=== PATIENT | male | born 1985 | race Caucasian/White ===

== ENCOUNTER 2023-04-15 18:23 | Emergency (ER) | payer SELFPAY ==
[2023-04-15 18:29] VITALS: BP 131/85; PULSE 107; RESP 18; TEMP 36.6; O2SAT 97
--- NOTE | 2023-04-15 20:58 | ED.URI ---
HPI - URI/Sore Throat General Chief Complaint: Upper Respiratory Infection Stated Complaint: Sore Throat/Cough/Shortness of Breath Source: patient, RN notes reviewed and old records reviewed Mode of arrival: ambulatory Limitations: no limitations History of Present Illness HPI Narrative: 38 year old male presents to [facility] care with complaints of sinus pressure, ear and teeth pain for one week duration. Patient reports that he developed headache, fever,cough with congestion some sore throat, and feeling flushed with body aches starting last night. Patient also reports that pain to his right ear has increased and he is unsure how high his temperature has been He reports that he has been taking Ibuprofen. MD elicited complaint: fever, sore throat, rhinorrhea, nasal congestion and other (ear pain) Onset (ago): week(s) (initial symptoms of sinus with ear pain 1 week other symptoms since last night) Pain scale (0-10): 6 Able to tolerate fluids by mouth: Yes Treatments prior to arrival: ibuprofen Related Data Allergies Allergy/AdvReac Type Severity Reaction Status Date / Time azithromycin Allergy Intermediate Rash Verified 04/15/23 19:44 Review of Systems Review of Systems: CONSTITUTIONAL: Reports malaise, chills, sweats, or fever. EYES: Denies visual changes, redness, or discharge. ENT: Reports rhinorrhea, congestion, sinus pain, otalgia and sore throat. CARDIOVASCULAR: Denies chest pain, palpitations, or edema. RESPIRATORY: Reports cough.? Denies dyspnea. GASTROINTESTINAL: Denies abdominal pain, nausea, vomiting, diarrhea SKIN: Denies rash or itching. MUSCULOSKELETAL:Reports myalgia. NEUROLOGIC: Reports headache. All systems reviewed & are unremarkable except as noted in HPI and below PMFSH Past Medical History Medical History (Updated 04/18/23 @ 17:01 by Tamiko Ramírez NP) Fracture of left leg Fracture of right foot surgical repair Surgical History Surgical History (Updated 04/18/23 @ 16:56 by Tamiko Ramírez NP) History of surgical removal of testicle left History of tonsillectomy Social History Social History (Updated 04/18/23 @ 16:58 by Tamiko Ramírez NP) Smoking status: Never smoker Alcohol intake: current Alcohol use details: social Substance use type: does not use Living arrangements: with family Gender identity (if verbalized by the patient): Male Comments At time of signature, agree with nursing past medical, surgical, social and family history. There is no relevant family history pertinent to the presenting complaint Exam Narrative: GENERAL: Well-appearing, well-nourished, and in no acute distress. HEAD: Normocephalic EYES: PERRLA, conjunctivae clear ENT: Nares clear, turbinates edematous and erythematous, clear discharge. Mucous membranes moist.Right TM red and bulging Left TM pearly albright with dull light reflex; no tragal tenderness. Oropharynx erythematous without lesions. Tonsils not present and throat without exudate, no drooling, no hoarseness, no trismus, uvula midline.post nasal drainage. NECK: Supple. No lymphadenopathy CHEST: Clear to auscultation, breath sounds equal. No wheezing, rhonchi, rales, or stridor. No respiratory distress, speaks in full sentences.cough productive SAO2 97% on room air HEART: Regular rate and rhythm. No murmur heard. SKIN: Warm, dry, no rash. NEURO: Alert and oriented x3. PSYCH: Normal mood and affect Course Course Emergency Course: Patient is aware of diagnosis, understands and agrees to treatment plan.? Anticipatory guidance given.? Patient agrees to follow-up as directed and is aware of reasons to seek care at the emergency department. Portions of this record may have been created with voice recognition software Level of Care: Express Care Visit Vital Signs Vital signs: Vital Signs Temperature 36.6 C 04/15/23 18:29 Pulse Rate 107 H 04/15/23 18:29 Respiratory Rate 18 04/15/23 18:2
== END 2023-04-15 21:07 | disposition home or self-care (01) ==
PROVIDERS: Emergency Provider Registered Nurse
DX: J10.1 Influenza due to other identified influenza virus with other respiratory manifestations (principal); H66.91 Otitis media, unspecified, right ear
CPT/HCPCS: 87804; 99203; G0463

== ENCOUNTER 2025-04-15 11:07 | Emergency (ER) | payer OTHER, SELFPAY ==
--- OUTSIDE RECORDS SUMMARY | 2025-04-15 11:14 | XMS_ITS | Clinical Summary ---
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 Name Role Phone Moose Gibbons MD Unavailable [phone] No, Physician Primary Care Provider [phone] Allergies Active Allergy Reactions Criticality Noted Date Comments Azithromycin Medications aspirin 81 mg enteric coated tabletIndicatio ns:myocardial infarction prevention Take 1 tablet (81 mg total) by mouth daily 30 tablet 1 Active metoprolol tartrate (LOPRESSOR) 25 mg immediate release tabletIndicatio ns:Cardiovasula r Disease Take 1 tablet (25 mg total) by mouth 2 (two) times a day 60 tablet 1 Active Additional Information Patient not taking.Reported on 12/25/2021 nitroglycerin (NITROSTAT) 0.4 mg SL tabletIndicatio ns:Angina Place 1 tablet (0.4 mg total) under the tongue every 5 (five) minutes as needed for chest pain for up to 3 doses 30 tablet 1 Active Additional Information Patient not taking.Reported on 12/25/2021 dicyclomine (BENTYL) 20 mg tablet Take 1 tablet (20 mg total) by mouth every 8 (eight) hours as needed (Crampy abdominal pain) 20 tablet 1 Active Additional Information Patient not taking.Reported on 12/25/2021 amoxicillin-cla vulanate (AUGMENTIN) 875-125 mg per tablet Take 1 tablet by mouth every 12 (twelve) hours 14 tablet 1 Active Additional Information Patient not taking.Reported on 12/25/2021 albuterol HFA (PROVENTIL HFA,VENTOLIN HFA,PROAIR HFA) 90 mcg/actuation inhaler Inhale 2 puffs every 4 (four) hours as needed for wheezing 1 each 1 Active Additional Information Patient not taking.Reported on 12/25/2021 ibuprofen (ADVIL,MOTRIN) 800 mg tablet Take 1 tablet (800 mg total) by mouth every 8 (eight) hours as needed for pain or fever 20 tablet 3 Active tamsulosin (FLOMAX) 0.4 mg extended release capsule Take 1 capsule (0.4 mg total) by mouth daily 30 capsule 3 Active cyclobenzaprine (FLEXERIL) 5 mg tablet Take 1 tablet (5 mg total) by mouth 3 (three) times a day as needed for muscle spasms 30 tablet 3 Active Active Problems Problem Noted Date Diagnosed Date COVID-19 04/09/2021 Acute febrile illness 10/30/2020 Elevated troponin level Surgical History Surgery Date Site/Laterality Comments WRIST SURGERY FOOT SURGERY TESTICLE SURGERY Medical History Medical History Date Comments Covid-19 Family History Medical History Relation Name Comments No Known Problems Father No Known Problems Mother Relation Name Status Comments Father Mother Social History Tobacco Use Types Packs/Day Years Used Date Smoking Tobacco: Never Smokeless Tobacco: Never Tobacco Cessation:Counseling Given: Not Answered Alcohol Use Standard Drinks/Week Comments Yes 0 (1 standard drink = 0.6 oz pur e alcohol) occasionally AUDIT-C Answer Date Recorded Q1: How often do you have a drink containing alc ohol? 2-4 times a month 10/30/2020 Average Number of Drinks Not on file 021 Q3: How often do you have si x or more drinks on one occasion? Never 10/30/2020 Personal Safety Answer Date Recorded Getting School Help Needed Not on file 06/28 Sex and Gender Information Value Date Recorded Sex Assigned at Not on file Legal Sex Male 2:44 AM CONTROL ROOM AGENT Gender Identity Male 07/18/2022 11:12 AM CDT Sexual Orientation Not on file Last Filed Vital Signs Vital Sign Reading Time Taken Comments Blood Pressure 126/87 07/22/2022 10:47 AM CDT Pulse 89 07/22/2022 10:47 AM CDT Temperature 36.8 C (98.3 F) 07/22/2022 10:47 AM CDT Respiratory Rate 16 06/20/2022 10:05 PM CONTROL ROOM AGENT Oxygen Saturation 97% 06/21/2022 1:30 AM CONTROL ROOM AGENT Inhaled Oxygen Concentration - - Weight 102.1 kg (225 lb) 06/20/2022 6:44 PM CONTROL ROOM AGENT Height 180.3 cm (5' 11) 06/20/2022 6:44 PM CONTROL ROOM AGENT Body Mass Index 31.38 06/20/2022 6:44 PM CONTROL ROOM AGENT Plan of Treatment Health Maintenance Due Date Last Done Comments Depression Screening 1987 Hepatitis C Screening 1987 DTaP/Tdap/Td Vaccine (1 - Tdap) 1998 Varicella Vaccines (1 of 2 - 13+ 2-dose series) 02/29/2000 Hepatitis B Screening 2005 Regular Well Visit/Exam 18-64 2005 HPV Vaccines (1 - 3-dose SCD M series) 2014 Influenza Vaccine (#1) 2025 Pneumococcal vaccine <65 Aged Out No longer eligible based on patient's age to complete this topic Insurance [facility] [address] Advance Directives For more information, please contact: [phone] * Full Code (Latest Code Status on File) Date Activated Date Inactivated Comments 10/30/2020 12:28 PM 10/31/2020 10:46 PM Care Teams Cocoa Milling Machine Operator Relationship Specialty Start Date End Date No, Physician PCP - General 04/10/21 Moose Gibbons MD Consulting Physician Cardiovascular Disease 10/31/20
--- OUTSIDE RECORDS SUMMARY | 2025-04-15 11:14 | XMS_ITS | Clinical Summary ---
Author Organization [facility] Address [address] [place] [address] Phone Care Team Providers Care Heel Padder Name Role Phone Provider, None Primary Care Provider Unavailabl e Allergies Active Allergy Reactions Criticality Noted Date Comments Azithromycin Hives 05/10/2016 Medications HYDROcodone-acet aminophen (NORCO) 5-325 MG Tablet Take 1-2 Tabs by mouth every 6 hours as needed for Pain. 10 Tab 0 05/10/2016 Active Meloxicam 15 MG Tablet Take 1 Tab by mouth daily. 10 Tab 02/26/2018 Active Social History Tobacco Use Types Packs/Day Years Used Date Smoking Tobacco: Never Smokeless Tobacco: Never Alcohol Use Standard Drinks/Week Comments Yes 0 (1 standard drink = 0.6 oz pur e alcohol) Socially Sex and Gender Information Value Date Recorded Sex Assigned at Not on file Legal Sex Male 9:56 PM CDT Gender Identity Not on file Sexual Orientation Not on file Last Filed Vital Signs Vital Sign Reading Time Taken Comments Blood Pressure 122/76 11/10/2018 8:46 PM CDT Pulse 81 11/10/2018 8:46 PM CDT Temperature 36.5 C (97.7 F) 11/10/2018 6:39 PM CDT Respiratory Rate 18 11/10/2018 8:46 PM CDT Oxygen Saturation 98% 11/10/2018 8:46 PM CDT Inhaled Oxygen Concentration - - Weight 104.3 kg (230 lb) 11/10/2018 6:39 PM CDT Height 180.3 cm (5' 11) 11/10/2018 6:39 PM CDT Body Mass Index 32.08 11/10/2018 6:39 PM CDT Plan of Treatment Health Maintenance Due Date Last Done Comments Hepatitis C Virus (HCV) Screening 1987 TdaP Immunization 1987 Varicella Immunization (1 of 2 - 13+ 2-dose series) 02/29/2000 Hepatitis B Immunization (1 of 3 - 19+ 3-dose series) 2006 Influenza Immunization (#1) 2025 SARS-COV-2 Immunization (2024- season) 2025 Respiratory Syncytial Virus (RSV) Immunization (Adult) (1 - 1-dose 75+ series) 2062 Human Papillomavirus (HPV) Immunization (No Doses Required) Completed Meningococcal Immunization (ACWY) Aged Out No longer eligible based on patient's age to complete this topic Pneumococcal Immunization Combined Aged Out No longer eligible based on patient's age to complete this topic Rotavirus Immunization Aged Out No lo nger eligible based on patient's age to complete this topic Care Teams Heel Padder Relationship Specialty Start Date End Date Provider, None [place] PCP - General 05/10/16
[2025-04-15 11:20] VITALS: BP 143/77; PULSE 68; RESP 20; TEMP 36.8; O2SAT 97
[2025-04-15 11:45] LABS: EDSTREPNEGPOS1 Negative (Negative)
--- NOTE | 2025-04-15 11:45 | ED.URI ---
HPI - URI/Sore Throat General Chief Complaint: Upper Respiratory Infection Stated Complaint: cold/sinus infection Time Seen by Provider: 04/15/25 11:37 Source: patient and RN notes reviewed Mode of arrival: ambulatory Limitations: no limitations History of Present Illness HPI Narrative: Patient presents today with a 10 day history of nasal congestion, headache, cough, sore throat, subjective fever. Denies shortness of breath. States he was exposed to strep throat. He has tried ibuprofen without relief. No history of asthma or COPD. 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 Related Data Allergies Allergy/AdvReac Type Severity Reaction Status Date / Time azithromycin Allergy Intermediate Rash Verified 04/15/25 11:33 [facility] Past Medical History Medical History Fracture of left leg Fracture of right foot surgical repair Surgical History Surgical History History of tonsillectomy History of surgical removal of testicle left Social History Social History Smoking status: Never smoker Alcohol intake: current Alcohol use details: social Substance use type: does not use Living arrangements: with family Gender identity (if verbalized by the patient): Male Comments At time of signature, I have reviewed and agree with nursing past medical, surgical, social and family history unless otherwise noted. Please see nursing chart for further information. There is no relevant family history pertinent to the presenting complaint Exam Narrative: GENERAL: Mildly ill-appearing, well-nourished, and in no acute distress. HEAD: Normocephalic, atraumatic. EYES: EOMI. No redness or drainage. Conjunctivae normal. ENT: Mucous membranes pink and moist. Nares congested. No rhinorrhea. TMs normal bilaterally. Throat mildly erythematous without edema or exudate. Uvula midline. NECK: Normal AROM. Supple. No lymphadenopathy. CHEST: No respiratory distress. Clear to auscultation. HEART: Regular rate and rhythm. No murmur appreciated. EXTREMITIES: Normal range of motion. No edema. SKIN: Warm, dry, no rash. Capillary refill normal. Normal skin turgor. NEURO: No focal deficits. Alert and oriented x3. Gait steady. PSYCH: Normal affect. No signs of depression or anxiety. Course Course Level of Care: Express Care Visit Vital Signs Vital signs: Vital Signs Temperature 98.3 F 04/15/25 11:20 Pulse Rate 68 04/15/25 11:20 Respiratory Rate 20 04/15/25 11:20 Blood Pressure 143/77 H 04/15/25 11:20 Pulse Oximetry 97 04/15/25 11:20 Oxygen Delivery Room Air 04/15/25 11:20 Temperature 98.3 F 04/15/25 11:20 Pulse Rate 68 04/15/25 11:20 Respiratory Rate 20 04/15/25 11:20 Blood Pressure 143/77 H 04/15/25 11:20 Pulse Oximetry 97 04/15/25 11:20 Oxygen Delivery Room Air 04/15/25 11:20 Reviewed [facility] Narrative Medical decision making narrative: Patient presents today with a 10 day history of nasal congestion, headache, cough, sore throat, subjective fever. Denies shortness of breath. States he was exposed to strep throat. He has tried ibuprofen without relief. No history of asthma or COPD. 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 Upon exam, patient is mildly ill appearing with nasal congestion. Rapid strep negative. Culture pending. Patient will be treated with Augmentin for presumed bacterial sinusitis given duration of illness and fact that symptoms seem to be worsening over the past 2 days. Recommend Mucinex for OTC cough suppressant as needed. Patient agrees with plan. Vital signs stable. Anticipatory guidance given. Differential Diagnosis Differential Diagnosis: Sinusitis, bronchitis, URI, pharyngitis, strep throat Lab Data [facility] Lab Attestation statement: I personally reviewed the patient's lab results. Labs: Lab Results 04/15/25 Range/Units 11:32 POC Grp A Strep Screen Negative (Negative) Critical Care Time Critical Care Time Critical Care Time: No Discharge Plan Discharge Clinical Impression: Sinusitis Qualifiers: Sinusitis location: unspecified location Chronicity: acute Recurrence: non-recurrent Qualified Code(s): J01.90 - Acute sinusitis, unspecified Patient Disposition: Home Condition: Stable Instructions: Antibiotic Form, Sinusitis (ED) Additional Instructions: Your rapid strep screen is negative. Please take the Augmentin as prescribed until gone. Consider taking Mucinex to help break up any chest congestion. You may also consider a cough suppressant at night such as Robitussin DM for NyQuil if needed. Follow-up with your PCP with any additional concerns. Patient Language: Togolese Prescriptions: New amoxicillin-pot clavulanate 875-125 mg tablet 1 tablet PO Q12H 7 Days Qty: 14 0RF Follow-up/Referrals: [facility]IC[facility] [Primary Care Provider, Internal Medicine] Time of Disposition: 11:50
== END 2025-04-15 11:54 | disposition home or self-care (01) ==
PROVIDERS: Emergency Provider Nurse Practitioner
DX: J01.90 Acute sinusitis, unspecified (principal)
CPT/HCPCS: 87081; 87880; 99213; G0463